=== PATIENT | male | born 1990 ===

== ENCOUNTER 2017-03-15 07:31 | Day surgery (SDC) | payer MEDICAID ==
[2017-03-11 13:26] VITALS: BMI 21.8
[2017-03-15] MEDS ORDERED: Morphine 2 mg/ml ISec IVP ONE ×4 (08:07→09:11)
[2017-03-15] MEDS ORDERED: Morphine 2 mg/ml ISec ONE ×2 (08:16→09:02)
[2017-03-15] MEDS ORDERED: Propofol 10 mg/ml Inj (20 ML) ONE (10:20)
[2017-03-15] MEDS ORDERED: Lidocaine 2% Inj (20ml) ONE (10:20)
[2017-03-15] MEDS ORDERED: Sodium Chloride 0.9% 1,000 ML IV SCH (11:30)
[2017-03-15 14:31] VITALS: BP 130/67; PULSE 61; RESP 16; TEMP 97.7; O2SAT 95
== END 2017-03-15 13:03 | disposition home or self-care (01) ==
LOC: ENDO 07:31
PROVIDERS: ATTEND Internal Medicine
DX: K29.70 Gastritis, unspecified, without bleeding (principal); K44.9 Diaphragmatic hernia without obstruction or gangrene; B96.81 Helicobacter pylori [H. pylori] as the cause of diseases classified elsewhere; K64.8 Other hemorrhoids; K64.4 Residual hemorrhoidal skin tags; K62.89 Other specified diseases of anus and rectum
CPT/HCPCS: 43239; 45380; 88305; 88312; 88342; J2270; J2405; J2704; J3010; J7040 ×2

== ENCOUNTER 2017-03-15 13:08 | Emergency (ER) | payer MEDICAID ==
[2017-03-15 13:17] VITALS: RESP 16; TEMP 98.4; O2SAT 100
[2017-03-15 13:18] VITALS: BMI 23.5
[2017-03-15] MEDS ORDERED: Sucralfate 1 gm/10 ml Oral Susp UD PO STA (13:29)
[2017-03-15] MEDS ORDERED: Sodium Chloride 0.9% 1,000 ML IV STA (13:29)
--- NOTE | 2017-03-15 13:41 | ED PDOC ---
Arrival/HPI - General Time Seen by Provider: 03/15/17 13:20 Historian: Patient, Family - History of Present Illness Narrative History of Present Illness (Text): 03/15/17 13:21 Patient is a 26 year old male, with no past medical history, presents to the emergency department complaining of abdominal pain. During his trip to [place], last week, he was hospitalized for four days because of his constant vomiting and he noted having weight changes. During that admission, the patient had 2 CT scans of the abdomen which showed no acute findings, but his abdominal pain did not improve. Pt eventually left [place] and returned home to [place]. Today the pt had an upper and lower endoscopy by Dr. Ware. After the procedure, the patient's pain in his abdomen returned and Dr. Ware sent the pt to the ED to get a CT of the abdomen to r/o mesenteric ischemia. Patient reports the pain is 10 out 10 in severity and the last time he vomited was this morning. He denies any headaches, shortness of breath, fever, chills, or any other complaints. Pt states that Dilaudid (when in hospital) usually helps his pain. No fever. The upper endoscopy did not reveal anything that would explain this high degree of pain over the last week or so. Pt states the pain is in the midepigastric and periumbilical area--does not radiate. PMD: [facility]: Dr. Ware Time/Duration: 1 week Symptom Onset: Sudden Symptom Course: Unchanged Severity Level: 10 Activities at Onset: Light Modifying Factors (Text): None Associated Symptoms (Text): Nausea, vomiting, weight changes Past Medical History - Provider Review Nursing Documentation Reviewed: Yes - Cardiac Hx Pacemaker: No - Neurological Hx Paralysis: No - Hematological/Oncological Hx Blood Transfusions: No - Musculoskeletal/Rheumatological Hx Musculoskeletal Disorders: No - Psychiatric Hx Emotional Abuse: No Hx Physical Abuse: No Hx Substance Use: Yes (MARIJUANA -STOPPED 1 GIULIANA AGO) - Anesthesia Hx Anesthesia Reactions: No Hx Malignant Hyperthermia: No - Suicidal Assessment Feels Threatened In Home Enviroment: No Family/Social History - Physician Review Nursing Documentation Reviewed: Yes Family/Social History: No Known Family HX Smoking Status: Never Smoked Hx Alcohol Use: No (RARELY) Hx Substance Use: Yes (MARIJUANA -STOPPED 1 GIULIANA AGO) Allergies/Home Meds Allergies/Adverse Reactions: Allergies No Known Allergies Allergy (Verified 03/14/17 07:36) Home Medications: Home Meds Medication Instructions Recorded Confirmed Hyoscyamine [Hyoscyamine Sulfate] 0.125 mg PO Q4H PRN 03/11/17 03/15/17 Lidocaine 2% Viscous [Lidocaine 2% 5 ml PO Q6H PRN 03/11/17 03/15/17 Viscous] Pantoprazole [Protonix] 40 mg PO DAILY 03/11/17 03/15/17 Polyethylene Glycol 3350 [Miralax] 17 gm PO BID 03/11/17 03/15/17 Review of Systems - Physician Review All systems were reviewed & negative as marked: Yes - Review of Systems Constitutional: Weight Change (loss weight this week due to vomiting). absent: Fevers Respiratory: absent: SOB Gastrointestinal: Abdominal Pain, Nausea, Vomiting Musculoskeletal: absent: Back Pain Neurological: absent: Headache Physical Exam Vital Signs Reviewed: Yes Vital Signs Temp Pulse Resp BP Pulse Ox 03/15/17 16:24 61 16 129/56 L 100 03/15/17 13:16 98.4 F 67 16 126/49 L 100 Temperature: Afebrile Blood Pressure: Hypotensive Pulse: Regular Respiratory Rate: Normal Appearance: Positive for: Well-Appearing, Non-Toxic, Comfortable Pain Distress: None Mental Status: Positive for: Alert and Oriented X 3 - Systems Exam Head: Present: Atraumatic, Normocephalic Pupils: Present: PERRL Extroacular Muscles: Present: EOMI Conjunctiva: Present: Normal Mouth: Present: Moist Mucous Membranes Neck: Present: Normal Range of Motion Respiratory/Chest: Present: Clear to Auscultation, Good Air Exchange. No: Respiratory Distress, Accessory Muscle Use Cardiovascular: Present: Regular Rate and Rhythm, Normal S1, S2. No: Murmurs Abdomen: Present: Tenderness (mid-epigastric tenderness with palpation), Normal Bowel Sounds. No: Distention, Peritoneal Signs, Rebound, Guarding Upper Extremity: Present: Normal Inspection. No: Cyanosis, Edema Lower Extremity: Present: Normal Inspection. No: Edema Neurological: Present: GCS=15, Speech Normal, Motor Func Grossly Intact Skin: Present: Warm, Dry, Normal Color. No: Rashes Psychiatric: Present: Alert, Oriented x 3, Normal Insight, Normal Concentration Medical Decision Making ED Course and Treatment: 03/15/17 13:21 Impression: 26 year old male with abdominal pain associated with nausea and vomiting s/p endoscopy Differential Diagnosis included but are not limited to: undifferentiated abdominal pain -- pt with extensive workup already. GI recommends CT to r/o mesenteric ischemia Plan: -- CT abdominal/pelvis with IV contrast -- Urinalysis -- Labs -- Carafate, Morphine, and Sodium Chloride -- Reassess and disposition Progress Notes: 03/15/17 14:[address] Ware (GI) who states to order a CT with IV contrast to rule out mesenteric ischemia. On reevaluation patient states after receiving medication the severity level of the pain has gone down from a 10 to 6. 03/15/17 16:04 Pt feels much better. No mesenteric ischemia on CT (and 2 recent CTs in [place] were negative). Will d/c home. Pt can f/u with GI. - Lab Interpretations Lab Results: 03/15/17 14:00 03/15/17 14:00 Lab Results 03/15/17 14:00: Sodium 140, Potassium 3.9, Chloride 103, Carbon Dioxide 24, Anion Gap 17, BUN 12, Creatinine 1.1, Est GFR ( Amer) > 60, Est GFR (Non- Af Amer) > 60, Random Glucose 117 H, Calcium 9.5, Total Bilirubin 0.6, AST 20, ALT 22, Alkaline Phosphatase 37 L, Total Protein 6.7, Albumin 4.4, Globulin 2.3 , Albumin/Globulin Ratio 1.9 H, Lipase 95 03/15/17 14:00: WBC 16.1 H, RBC 4.78, Hgb 14.2, Hct 40.6 L, MCV 84.9, MCH 29.7, MCHC 35.0, RDW 12.6, Plt Count 172, MPV 10.7, Gran % 88.4 H, Lymph % (Auto) 8.1 L, [place] % (Auto) 3.4, Eos % (Auto) 0.0 L, Baso % (Auto) 0.1, Gran # 14.21 H, Lymph # 1.3, [place] # 0.5, Eos # 0.0, Baso # 0.02 I have reviewed the lab results: Yes - RAD Interpretation Radiology Orders: 03/15/17 14:02 ABD & PELVIS IV CONTRAST ONLY [CT] Stat - Medication Orders Current Medication Orders: Discontinued Medications Sodium Chloride (Sodium Chloride 0.9%) 1,000 mls @ 1,000 mls/hr IV .Q1H STA Stop: 03/15/17 14:28 Last Admin: 03/15/17 13:55 Dose: 1,000 mls/hr Iohexol (Omnipaque 350 150 Ml) Confirm Administered Dose 150 ml .ROUTE .STK-MED ONE Stop: 03/15/17 14:56 Morphine Sulfate (Morphine) 8 mg IV STAT STA Stop: 03/15/17 13:29 Last Admin: 03/15/17 13:54 Dose: 8 mg Sucralfate (Carafate Oral Susp) 1 gm PO STAT STA Stop: 03/15/17 13:30 Last Admin: 03/15/17 13:55 Dose: 1 gm - Scribe Statement The provider has reviewed the documentation as recorded by the Scribe 03/15/2017 Jennifer Kuhn training with Tamera Singh Provider Scribe Attestation: All medical record entries made by the Scribe were at my direction and personally dictated by me. I have reviewed the chart and agree that the record accurately reflects my personal performance of the history, physical exam, medical decision making, and the department course for this patient. I have also personally directed, reviewed, and agree with the discharge instructions and disposition. Disposition/Present on Arrival - Present on Arrival Any Indicators Present on Arrival: No - Disposition Have Diagnosis and Disposition been Completed?: Yes Diagnosis: Abdominal pain Disposition: HOME/ ROUTINE Disposition Time: 16:05 Patient Plan: Discharge Condition: IMPROVED Discharge Instructions (ExitCare): Abdominal Pain (ED) Print Language: UPPER SORBIAN Additional Instructions: Mr. Rodriguez, thank you for letting us take care of you today. Return to the ER if your symptoms worsen, or if any problems. Take the medications that were prescribed to you by Dr. Ware. Please follow up with Dr. Ware in 1-2 days for a re-evaluation. Prescriptions: Sucralfate [Carafate Oral Susp] 2 tsp PO QID #12 oz Referrals: Rafael Ware MD [Staff Provider] - Follow up with primary Forms: [employer] (Albanian)
[2017-03-15 14:39] LABS: BASO # 0.02 K/mm3 (0.0-2.0); BASO % 0.1 % (0.0-3.0); GRAN # 14.21 (1.4-6.5); GRAN % 88.4 % (50.0-68.0); HEMOGLOBIN 14.2 gm/dL (14.0-18.0); LYMPH # 1.3 (1.2-3.4); LYMPH % 8.1 % (22.0-35.0); MEAN CELL VOLUME 84.9 fL (80.0-105.0); MEAN CORPUSCULAR HEMOGLOBIN 29.7 pg (25.0-35.0); MEAN PLATELET VOLUME 10.7 fl (7.0-11.0); MONO # 0.5 (0.1-0.6); MONO % 3.4 % (1.0-6.0); PLATELET COUNT 172 10^3/uL (120.0-450.0); RBC 4.78 10^6/uL (3.5-6.1); RED CELL DISTRIBUTION WIDTH 12.6 % (11.5-14.5); WHITE BLOOD COUNT 16.1 10^3/ul (4.5-11.0)
[2017-03-15 14:48] LABS: ALB/GLOB RATIO 1.9 (1.1-1.8); ALBUMIN 4.4 g/dL (3.0-4.8); ALT/SGPT 22 U/L (7-56); AST/SGOT 20 U/L (15-59); BLOOD UREA NITROGEN 12 mg/dL (7-21); CALCIUM 9.5 mg/dL (8.4-10.5); GFR AFRICAN-AMERICAN > 60; GFR NON-AFRICAN AMERICAN > 60; LIPASE 95 U/L (23-300)
--- NOTE | 2017-03-15 15:39 | CT ---
PROCEDURE: CT Abdomen and Pelvis with contrast HISTORY: Abd pain; GI MD wants to r/o mesenteric ischemia COMPARISON: None. TECHNIQUE: Contrast dose: 150 cc of Omni 350 Radiation dose: Total exam DLP = 288 mGy-cm. This CT exam was performed using one or more of the following dose reduction techniques: Automated exposure control, adjustment of the mA and/or kV according to patient size, and/or use of iterative reconstruction technique. FINDINGS: LOWER THORAX: Unremarkable. LIVER: Unremarkable. No gross lesion or ductal dilatation. GALLBLADDER AND BILE DUCTS: Unremarkable. PANCREAS: Unremarkable. No gross lesion or ductal dilatation. SPLEEN: Unremarkable. ADRENALS: Unremarkable. No mass. KIDNEYS AND URETERS: Unremarkable. No hydronephrosis. No solid mass. VASCULATURE: Unremarkable. No aortic aneurysm. The celiac axis and SMA are widely patent. BOWEL: Unremarkable. No obstruction. No gross mural thickening. APPENDIX: Normal appendix. PERITONEUM: Unremarkable. No free fluid. No free air. LYMPH NODES: Unremarkable. No enlarged lymph nodes. BLADDER: Unremarkable. REPRODUCTIVE: Unremarkable. BONES: No acute fracture. OTHER FINDINGS: None. IMPRESSION: Unremarkable contrast enhanced CT of the abdomen and pelvis.
[2017-03-15 16:25] VITALS: BP 129/56; PULSE 61
== END 2017-03-15 16:23 | disposition home or self-care (01) ==
LOC: ED 13:08
DX: R10.9 Unspecified abdominal pain (principal)
CPT/HCPCS: 74177; 80053; 83690; 85025; 96374; 99283; J2270; J7040; Q9967